=== PATIENT | female | born 1960 | race Caucasian/White ===

== ENCOUNTER → 2017-11-03 | Outpatient (CLI) | payer OTHER ==
[~2017-11-03] MED LIST: IRON90 MG PO; MULTIPLE VITAMI1 TAB PO; PERCOCET 325 MG1 TA2 PO; ZOFRAN4 MG PO
== END | disposition home or self-care (01) ==
LOC: US 07:29
DX: K76.0 Fatty (change of) liver, not elsewhere classified (principal); R16.1 Splenomegaly, not elsewhere classified; K83.8 Other specified diseases of biliary tract; Z90.49 Acquired absence of other specified parts of digestive tract

== ENCOUNTER 2020-06-22 11:55 | Observation (INO) | payer OTHER ==
[~2020-06-22] VITALS: Ht 172.7 cm; Wt 80.7 kg
[2020-06-22 12:12] VITALS: BP 136/76
[2020-06-22 13:18] LABS: HEMATOCRIT 46.3 % (37.0-47.0); MEAN CELL VOLUME 83.1 fl (81.0-99.0); MEAN CORPUSCULAR HGB 27.1 pg (27.0-31.0); MEAN CORPUSCULAR HGB CONC 32.6 g/dl (33.0-37.0); MEAN PLATELET VOLUME 9.7 fl (9.6-12.3); PLATELET COUNT AUTOMATED 235 10*3/uL (130-400); RED BLOOD COUNT 5.57 10*6/uL (4.10-5.10); RED CELL DISTRI WIDTH 13.9 % (0-14.5)
[2020-06-22 13:23] LABS: WHITE BLOOD COUNT 76.9 10*3/uL (4.8-10.8)
[2020-06-22 13:30] LABS: ALBUMIN 3.8 gm/dl (3.1-4.5); ALKALINE PHOSPHATASE 113 U/L (45-117); BUN 16 mg/dl (7-24); CHLORIDE 98 mmol/L (98-107); CREATININE 0.61 mg/dL (0.55-1.02); LIPASE 62 U/L (73-393); POTASSIUM 4.3 mmol/L (3.5-5.1); SGOT/AST 13 IU/L (3-35); SGPT/ALT 17 U/L (12-78); SODIUM 131 mmol/L (136-145); TOTAL PROTEIN 6.7 gm/dL (6.4-8.2)
[2020-06-22 13:34] LABS: BASOPHILS 1 % (0-1); BURR CELLS FEW; TOTAL CELLS COUNTED 100 #CELLS
[2020-06-22 13:35] LABS: OVALOCYTES FEW; PLATELET SUFFICIENCY NORMAL (NORMAL)
[2020-06-22 16:01] LABS: BILIRUBIN Negative (Negative); BLOOD Trace-Intact (Negative); CLARITY Cloudy (Clear); COLOR Yellow (Yellow); GLUCOSE Trace (Negative); KETONE 3+ (Negative); LEUKO ESTERASE 2+ (Negative); NITRITE Negative (Negative); SPECIFIC GRAVITY 1.025 (1.001-1.030)
[2020-06-22 16:12] LABS: BACTERIA 1+; HYALINE CAST 0-2; WBC 31-40 wbc/hpf (0-5)
[2020-06-22 22:30] VITALS: BP 110/68
[2020-06-23 06:27] LABS: CHLORIDE 106 mmol/L (98-107); SODIUM 139 mmol/L (136-145)
[2020-06-23 06:41] LABS: ALKALINE PHOSPHATASE 85 U/L (45-117); BUN 9 mg/dl (7-24); CHOLESTEROL 87 mg/dL (<200); CREATININE 0.52 mg/dL (0.55-1.02); LDL CHOLESTEROL 37 mg/dL (9-159); SGOT/AST 8 IU/L (3-35); SGPT/ALT 13 U/L (12-78); THYROID STIM HORMONE (HS) 0.769 uIU/ml (0.358-4.75); TOTAL PROTEIN 5.2 gm/dL (6.4-8.2); TRIGLYCERIDES 85 mg/dl (<150)
[2020-06-23 06:47] VITALS: BP 113/61
[2020-06-23 07:11] LABS: POTASSIUM 2.9 mmol/L (3.5-5.1)
[2020-06-23 07:19] LABS: HEMATOCRIT 38.5 % (37.0-47.0); MEAN CELL VOLUME 85.6 fl (81.0-99.0); MEAN CORPUSCULAR HGB CONC 32.7 g/dl (33.0-37.0); MEAN PLATELET VOLUME 10.3 fl (9.6-12.3); PLATELET COUNT AUTOMATED 183 10*3/uL (130-400); RED CELL DISTRI WIDTH 13.9 % (0-14.5)
[2020-06-23 07:23] LABS: WHITE BLOOD COUNT 47.4 10*3/uL (4.8-10.8)
[2020-06-23 07:38] LABS: BURR CELLS FEW; OVALOCYTES FEW; PLATELET SUFFICIENCY NORMAL (NORMAL); TOTAL CELLS COUNTED 100 #CELLS
[2020-06-23 08:43] LABS: VITAMIN D, 25-HYDROXY 20.7 ng/mL (30-100)
[2020-06-23 12:00] VITALS: BP 114/56
[2020-06-23 16:29] VITALS: BP 104/56
[2020-06-23 20:00] VITALS: BP 102/62
[2020-06-24] VITALS: BP 102/52
[2020-06-24 06:44] LABS: MEAN CELL VOLUME 86.6 fl (81.0-99.0); MEAN CORPUSCULAR HGB 27.7 pg (27.0-31.0); MEAN PLATELET VOLUME 10.1 fl (9.6-12.3); PLATELET COUNT AUTOMATED 151 10*3/uL (130-400); RED BLOOD COUNT 4.04 10*6/uL (4.10-5.10); RED CELL DISTRI WIDTH 13.9 % (0-14.5); WHITE BLOOD COUNT 30.6 10*3/uL (4.8-10.8)
[2020-06-24 06:50] LABS: BUN 6 mg/dl (7-24); CHLORIDE 109 mmol/L (98-107); CREATININE 0.55 mg/dL (0.55-1.02); SODIUM 142 mmol/L (136-145)
[2020-06-24 08:00] VITALS: BP 104/60
[2020-06-24 08:30] LABS: TOTAL CELLS COUNTED 100 #CELLS
[2020-06-24 08:31] LABS: BURR CELLS FEW; OVALOCYTES FEW; PLATELET SUFFICIENCY NORMAL (NORMAL)
[2020-06-24 12:00] VITALS: BP 100/58
[2020-06-24] MEDS ORDERED: K-TAB20 MEQ PO (13:45)
[2020-06-24] MEDS ORDERED: FLAGYL500 MG PO (13:45)
[2020-06-24] MEDS ORDERED: CIPRO500 MG PO (13:45)
[2020-06-24] MEDS ORDERED: PREDNISONE10 MG PO (13:46)
== END 2020-06-24 16:00 | disposition home or self-care (01) ==
LOC: ED 11:55 → EDHOLD 17:05 → 5E 17:05 → ED 17:05 → 5E 06-23 07:06 → EDHOLD 06-23 07:06 → 5E 06-24 16:00
PROVIDERS: Internal Medicine; Physician Assistant; ADMIT Emergency Medicine; ATTEND Emergency Medicine
DX: A41.9 Sepsis, unspecified organism (principal); K52.9 Noninfective gastroenteritis and colitis, unspecified; N39.0 Urinary tract infection, site not specified; D72.829 Elevated white blood cell count, unspecified; E87.1 Hypo-osmolality and hyponatremia; R17 Unspecified jaundice; R82.4 Acetonuria; Z98.84 Bariatric surgery status; R00.1 Bradycardia, unspecified; E87.6 Hypokalemia; E87.8 Other disorders of electrolyte and fluid balance, not elsewhere classified; D64.9 Anemia, unspecified; E78.5 Hyperlipidemia, unspecified

== ENCOUNTER → 2023-01-20 | Outpatient (CLI) | payer OTHER ==
[~2023-01-20] MED LIST changes: +CIPRO500 MG PO; +FLAGYL500 MG PO; +K-TAB20 MEQ PO; +PREDNISONE10 MG PO
== END | disposition home or self-care (01) ==
LOC: MAMMO 10:11
PROVIDERS: ATTEND Nurse Practitioner
DX: Z12.31 Encounter for screening mammogram for malignant neoplasm of breast (principal)